=== PATIENT | female | born 1990 | race Caucasian/White ===

== ENCOUNTER 2019-09-22 19:22 | Emergency (ER) | payer SELFPAY ==
[2019-09-22 19:36] VITALS: TEMP 98.8
[2019-09-22] MEDS ORDERED: SODIUM CHLORIDE 0.9% (FLUSH) 10 ML SYG IV PRN (19:46)
[2019-09-22] MEDS ORDERED: KETOROLAC TROMETHAMINE INJ 30 MG/ML VIAL IV ONE (19:47)
[2019-09-22] MEDS ORDERED: PROMETHAZINE HCL INJ 12.5 MG in SODIUM CHLORIDE 0.9% 50ML 50 ML IVPB ONE ×2 (19:47→21:00)
[2019-09-22] MEDS ORDERED: SODIUM CHLORIDE 0.9% 1000ML 1,000 ML IVS ONE (19:47)
--- NOTE | 2019-09-22 19:50 | ED.PDOC ---
History of Present Illness - General Chief Complaint: Headache Stated Complaint: headache, N/V, SOB Time Seen by Provider: 09/22/19 19:24 Source: patient - History of Present Illness Initial Comments: 29 yo female with PMH of gastric sleeve (2014) who presents with cc of headache and nausea. Reports was feeling unwelling yesterday with numerous episodes of watery diarrhea throughout the day and malaise. This morning at 6 am woke up with severe acute PONCE - located to center/front of head, no radiation, constant, 10/10 severity, throbbing, worse with bright lights, tried Tylenol/Excedrin/ibuprofen earlier today with no relief. Reports also nausea all day long with 5 episodes of NBNB emesis. Denies any recent head injuries. No hx of similar PONCE's or migraines in the past. Had gastric sleeve in 2014 in [place] (Dr. Howell) and hx of cholecystectomy in 2016. PCP is Dr. Pandya in [place]. Allergies/Adverse Reactions: Allergies Cefaclor [From [facility]] Allergy (Verified 09/22/19 19:36) Home Medications: Ambulatory Orders Levothyroxine Sodium [Synthroid] 75 mcg PO DAILY 09/22/19 Nitrofurantoin Monohydrate Mac [Macrobid] 100 mg PO BID 7 Days #14 capsule 09/22/19 Promethazine Tab [Phenergan Tablet] 25 mg PO Q8H PRN 10 Days #15 tab 09/22/19 Review of Systems - Review of Systems Review of Systems: 09/22/19 19:50 as per HPI All other Systems: Reviewed and Negative Past Medical History (General) - Patient Medical History Hx Seizures: No Hx Stroke: No Hx Dementia: No Hx Asthma: No Hx of COPD: No Hx Cardiac Disorders: No Hx Congestive Heart Failure: No Hx Pacemaker: No Hx Hypertension: No Hx Thyroid Disease: Yes Hx Diabetes: No Hx Gastroesophageal Reflux: No Hx Renal Disease: No Hx Cancer: No Hx of HIV: No Hx Hepatitis C: No Hx MRSA: No Surgical History: cholecystectomy - Vaccination History Hx Tetanus, Diphtheria Vaccination: Yes - 2016 Hx Influenza Vaccination: No - Social History Hx Alcohol Use: Yes Family Medical History - Family History Mother Family History: Unknown Physical Exam - Physical Exam General Appearance: Alert, Anxious Eye Exam: bilateral normal Ears, Nose, Throat: hearing grossly normal, normal ENT inspection, normal pharynx Neck: non-tender, full range of motion, supple, normal inspection Respiratory: lungs clear, normal breath sounds, no respiratory distress, no accessory muscle use Cardiovascular/Chest: normal peripheral pulses, regular rate, rhythm, no edema, no gallop, no JVD, no murmur Peripheral Pulses: radial,right: 2+, radial,left: 2+ Gastrointestinal/Abdominal: non tender, soft, no organomegaly, abnormal bowel sounds - decreased throughout Back Exam: normal inspection, no CVA tenderness, no vertebral tenderness Extremity: normal range of motion, non-tender, normal inspection, no pedal edema, no calf tenderness 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 Consider also SAH, pseudotumor cerebri, cluster PONCE, gastroenteritis, SBO, ileus, other -obtain labwork, UA, hcg -place PIV, 1 L NS bolus, Phenergan 12.5 mg IV, Toradol 30 mg IV for PONCE, reassess - if no/little relief, low threshold for CT head to rule out SAH 09/22/19 21:01 -Pt reports nausea much improved, PONCE down to 6/10 severity, remains stable -Labs show UA with 5-10 WBC, small leuk est - suspicous for UTI. CBC with mild microcytic anemia (suspect Fe def in young female) and CMP with K 3.0 (replaced PO). Otherwise unremarkable. -KUB shows moderate stool ascending colon with nonobstructive bowel gas pattern per my read -CXR with question of opacification in LLL concerning for PNA per radiology read - will obtain CT chest for better eval. -will also obtain CT head given acute onset severe PONCE. 09/22/19 22:19 -Pt reported PONCE remaining improved but still 6/10 severity so was given Reglan 10 mg IV & Benadryl 25 mg IV with further improvement. -CT head & chest shows no acute processes per my read and per radiology as well. -Discussed dx of (suspected) migraine headache and UTI as well as expected clinical course and continued home treatment plan. Will give Rx of Macrobid BID x7 days for UTI and Rx of Phenergan PRN nausea or breakthrough PONCE's. -dc home in good condition, return warnings discussed. F/u closely with PCP as well. Anthony Mejia MD Billing #[id number] 09/22/19 19:46 IV Care:Saline Lock per Protoc QSHIFT Telemetry .ONCE Sodium Chloride 0.9% (Flush) [Saline Flush Syringe] 10 ml IV PRN PRN Pulse Oximetry Assessment DAILY 09/22/19 20:12 STREP A SCREEN CULTURE Stat 09/22/19 20:47 Urine Culture Stat 09/23/19 09:00 Pulse Ox Daily Laboratory Results - last 24 hr 09/22/19 09/22/19 09/22/19 19:50 19:50 20:12 WBC 9.9 RBC 4.40 Hgb 11.2 L Hct 34.1 L MCV 77.6 L MCH 25.3 L MCHC 32.7 L RDW 15.7 H Plt Count 325 MPV 7.8 Absolute Neuts (auto) 5.80 Absolute Lymphs (auto) 2.80 Absolute Monos (auto) 1.00 H Absolute Eos (auto) 0.10 Absolute Basos (auto) 0.10 Neutrophils % 59.2 Lymphocytes % 28.3 Monocytes % 10.6 H Eosinophils % 1.1 Basophils % 0.8 Sodium 136 Potassium 3.0 L Chloride 102 Carbon Dioxide 24 Anion Gap 13.0 BUN 11 Creatinine 1.26 BUN/Creatinine Ratio 8.7 L Random Glucose 93 Serum Osmolality 271.1 L Calcium 8.9 Total Bilirubin 0.7 AST 16 ALT 15 Alkaline Phosphatase 34 L Serum Total Protein 7.7 Albumin 4.4 Globulin 3.3 Albumin/Globulin Ratio 1.3 Urine Color Urine Appearance Urine pH Ur Specific [place] Urine Protein Urine Glucose (UA) Urine Ketones Urine Blood Urine Nitrite Urine Bilirubin Urine Urobilinogen Ur Leukocyte Esterase Urine RBC Urine WBC Ur Epithelial Cells Urine Bacteria Urine HCG, Qual Group A Strep Rapid Negative 09/22/19 09/22/19 20:47 20:47 WBC RBC Hgb Hct MCV MCH MCHC RDW Plt Count MPV Absolute Neuts (auto) Absolute Lymphs (auto) Absolute Monos (auto) Absolute Eos (auto) Absolute Basos (auto) Neutrophils % Lymphocytes % Monocytes % Eosinophils % Basophils % Sodium Potassium Chloride Carbon Dioxide Anion Gap BUN Creatinine BUN/Creatinine Ratio Random Glucose Serum Osmolality Calcium Total Bilirubin AST ALT Alkaline Phosphatase Serum Total Protein Albumin Globulin Albumin/Globulin Ratio Urine Color Yellow Urine Appearance Cloudy Urine pH 5.5 Ur Specific [place] 1.020 Urine Protein Negative Urine Glucose (UA) Negative Urine Ketones Negative Urine Blood Negative Urine Nitrite Negative Urine Bilirubin Negative Urine Urobilinogen 0.2 Ur Leukocyte Esterase Small H Urine RBC 0 Urine WBC 5-10 H Ur Epithelial Cells 3-5 Urine Bacteria 0 Urine HCG, Qual Negative Group A Strep Rapid Departure - Departure Clinical Impression: Migraine Qualifiers: Migraine type: unspecified Status migrainosus presence: without status migrainosus Intractability: not intractable Qualified Code(s): G43.909 - Migraine, unspecified, not intractable, without status migrainosus UTI (urinary tract infection) Qualifiers: Urinary tract infection type: acute cystitis Hematuria presence: without hematuria Qualified Code(s): N30.00 - Acute cystitis without hematuria Time of Disposition: 22:12 Disposition: Discharge to Home or Self Care Condition: Fair Departure Forms: ED Discharge - Pt. Copy, Patient Portal Self Enrollment Instructions: DI for Headache, Urinary Tract Infection, Adult (DC) Diet: resume usual diet Activity: increase activity as tolerated Referrals: PEMA PANDYA MD [Primary Care Provider] - 1-2 Weeks Prescriptions: Nitrofurantoin Monohydrate Mac [Macrobid] 100 mg PO BID 7 Days #14 capsule Promethazine Tab [Phenergan Tablet] 25 mg PO Q8H PRN 10 Days #15 tab PRN Reason: Nausea Home Medications: Ambulatory Orders Levothyroxine Sodium [Synthroid] 75 mcg PO DAILY 09/22/19 Nitrofurantoin Monohydrate Mac [Macrobid] 100 mg PO BID 7 Days #14 capsule 09/22/19 Promethazine Tab [Phenergan Tablet] 25 mg PO Q8H PRN 10 Days #15 tab 09/22/19 Additional Instructions: Remain well-hydrated and advance your diet and activity level as tolerated. Return if worsening or other concerning symptoms develop. Continue Tylenol 650 mg every 6 hours as needed and ibuprofen 600 mg every 6 hours as needed for headache. You may take the promethazine (Phenergan) as directed for nausea. Follow up closely with your primary care doctor in next 1-2 weeks for repeat eval or sooner as needed.
[2019-09-22] MEDS ORDERED: PROMETHAZINE HCL INJ 25 MG/ML VIAL ONE ×2 (19:54→21:02)
[2019-09-22] MEDS ORDERED: SODIUM CHLORIDE 0.9% 50ML 50 ML ONE ×2 (19:54→21:02)
--- NOTE | 2019-09-22 20:28 | RAD ---
EXAM DESCRIPTION: Chest,1 View (accession [id number]), Abdomen 1 View (accession [id number]) CLINICAL HISTORY:29 years Female, n/v, dyspnea Comparison: None FINDINGS: Left lung base opacity. No pleural effusion. No pneumothorax. Cardiac and mediastinal silhouette is unremarkable. Nonobstructive bowel gas pattern. No evidence of free air. No abnormal abdominal calcification. No acute osseous abnormality. Soft tissues are unremarkable. IMPRESSION: Left lung base opacity concerning for pneumonia. CT chest is recommended. Nonobstructive bowel gas pattern. Electronically signed by: Bridger Sierra DO 09/22/2019 8:27 PM CDT
--- NOTE | 2019-09-22 20:28 | RAD ---
EXAM DESCRIPTION: Chest,1 View (accession [id number]), Abdomen 1 View (accession [id number]) CLINICAL HISTORY:29 years Female, n/v, dyspnea Comparison: None FINDINGS: Left lung base opacity. No pleural effusion. No pneumothorax. Cardiac and mediastinal silhouette is unremarkable. Nonobstructive bowel gas pattern. No evidence of free air. No abnormal abdominal calcification. No acute osseous abnormality. Soft tissues are unremarkable. IMPRESSION: Left lung base opacity concerning for pneumonia. CT chest is recommended. Nonobstructive bowel gas pattern. Electronically signed by: Bridger Sierra DO 09/22/2019 8:27 PM CDT
[2019-09-22] MEDS ORDERED: POTASSIUM CHLORIDE 20 MEQ TAB PO ONE (21:03)
[2019-09-22] MEDS ORDERED: diphenhydrAMINE HCL 50 MG/ML VIAL IV ONE (21:55)
[2019-09-22] MEDS ORDERED: METOCLOPRAMIDE HCL INJ 10 MG/2 ML VIAL IV ONE (21:55)
--- NOTE | 2019-09-22 22:16 | CT ---
PROCEDURE: Head CLINICAL HISTORY: 29 years Female acute onset severe frontal headache, nontraumatic COMPARISON: None. TECHNIQUE: Contiguous axial CT images obtained through the brain without IV contrast. This exam was performed according to our department optimization program which includes automated exposure control, adjustment of the mA and/or kv according to patient size and/or use of iterative reconstruction technique. FINDINGS: The ventricles and sulci are within normal limits for the patient's age. No midline shift or mass effect. No masses identified. No acute intracranial hemorrhage. No fluid or significant mucosal thickening in the visualized paranasal sinuses. No depressed calvarial fractures. IMPRESSION: No acute intracranial abnormality is identified. Electronically signed by: Vida Hi MD 09/22/2019 10:15 PM CDT
--- NOTE | 2019-09-22 22:18 | CT ---
PROCEDURE: Chest w/o Contrast CLINICAL HISTORY: 29 years Female dyspnea, opacity LLL on CXR COMPARISON: Chest x-ray 09/22/2019. TECHNIQUE: Contiguous axial images obtained through the chest without IV contrast. Reformatted images obtained. This exam was performed according to our department optimization program which includes automated exposure control, adjustment of the mA and/or kv according to patient size and/or use of iterative reconstruction technique. FINDINGS: Postsurgical changes in the stomach. No evidence of pericardial or pleural effusion. Residual thymic tissue in anterior mediastinum. No significant adenopathy noted. No evidence of pneumothorax. No consolidating infiltrates or pleural effusions. IMPRESSION: No evidence of pulmonary infiltrate to suggest pneumonia Electronically signed by: Vida Hi MD 09/22/2019 10:16 PM CDT
[2019-09-22] MEDS ORDERED: NITROFURANTOIN MONOHYDRATE MAC 100 MG CAP PO ONE (22:22)
[2019-09-22] MEDS ORDERED: PROMETHAZINE TAB (ER DISP) 25 MG TAB PO ONE (22:22)
[2019-09-22 22:42] VITALS: BP 114/73; O2SAT 98
== END 2019-09-22 22:41 | disposition home or self-care (01) ==
LOC: ER 19:22
DX: G43.909 Migraine, unspecified, not intractable, without status migrainosus (principal); N30.00 Acute cystitis without hematuria; R11.2 Nausea with vomiting, unspecified; R06.02 Shortness of breath; D50.9 Iron deficiency anemia, unspecified
CPT/HCPCS: 36415; 70450; 71045; 71250; 74018; 80053; 81001; 81025; 85025; 87070; 87086; 87502; 87880; A4216; J1200; J1885; J2550; J2765; J7030; Q0169